=== PATIENT | male | born 1950 | race Caucasian/White ===

== ENCOUNTER → 2023-06-10 15:10 | Outpatient (CLI) | payer OTHER, MEDICAID, SELFPAY ==
--- NOTE | 2023-06-10 15:13 | DI.MRI.S_ITS ---
PROCEDURE: MR CERVICAL SPINE WO CON INDICATIONS: Right greater than left axial neck pain TECHNIQUE: Noncontrast sagittal T1 spin echo and T2 fast spin echo, sagittal STIR, foraminal oblique sagittal T2 fast spin echo, and axial gradient echo or T2 fast spin echo through the cervical spine. COMPARISON: None. FINDINGS: Image quality: Excellent. Alignment and Curvature: There is normal bony alignment. Bone Marrow: Marrow demonstrates normal overall signal. Spinal Cord: Visualized spinal cord has normal size and signal. No cerebellar tonsillar herniation. Paraspinous Soft Tissues: No paravertebral masses. Prevertebral soft tissues are normal in thickness. C2-C3: No significant disc bulge. The foramina and central canal are patent. C3-C4: Diffuse disc bulge, facet hypertrophy, and uncovertebral hypertrophy cause moderate bilateral foraminal stenosis. The central canal is patent. C4-C5: Diffuse disc bulge, facet hypertrophy, and uncovertebral hypertrophy cause severe right and moderate left foraminal stenosis. Mild central canal stenosis. C5-C6: Diffuse disc bulge with a small central protrusion, facet hypertrophy, and uncovertebral hypertrophy cause severe right and moderate left foraminal stenosis. The central canal is patent. C6-C7: Diffuse disc bulge, facet hypertrophy, and uncovertebral hypertrophy cause moderate right and severe left foraminal stenosis. C7-T1: Diffuse disc bulge with no significant foraminal or central canal stenosis. IMPRESSION: 1. Multilevel cervical spondylosis from C3-4 through C6-7 causing foraminal stenosis as detailed above primarily from uncovertebral hypertrophy. 2. Mild central canal stenosis at C4-5, otherwise no significant central canal stenosis. Dictated by: Nabil López M.D. on 06/11/2023 at 12:08 Approved by: Nabil López M.D. on 06/11/2023 at 12:24
== END ==
PROVIDERS: PCP Family Medicine; Referring Provider Physical Medicine & Rehabilitation; Visit Provider Physical Medicine & Rehabilitation
DX: M47.812 Spondylosis without myelopathy or radiculopathy, cervical region (principal); M48.02 Spinal stenosis, cervical region
CPT/HCPCS: 72141

== ENCOUNTER 2023-07-27 09:19 | Outpatient (CLI) | payer OTHER, MEDICAID, SELFPAY ==
[2023-07-27] VITALS (10 sets, daily range): BP systolic 145–172; BP diastolic 65–90; PULSE 65–79; RESP 14–21; TEMP 37; O2SAT 32–100
--- NOTE | 2023-07-27 09:45 | DI.RAD.S_ITS ---
PROCEDURE: PAIN C/T FACET INJ/BLK 1ST L INDICATIONS: SPINAL STENOSIS COMPARISON: [facility], MR, MR CERVICAL SPINE WO CON, 06/10/2023, 15:21. FINDINGS: Fluoroscopic spot filming was performed to verify placement of spinal needles on the right at the C5, C6, and C7 levels, as labeled on the films. Appropriate location of the needle tips was confirmed by injection of iodinated contrast. IMPRESSION: Intraprocedural examination demonstrating appropriate positions of the needles. Dictated by: Jose D Desir M.D. on 07/27/2023 at 13:49 Approved by: Jose D Desir M.D. on 07/27/2023 at 13:50
[2023-07-27] MEDS: MIDAZOLAM 2 MG/2 ML VIAL IV ×2 (10:17→10:22)
[2023-07-27] MEDS: BUPIVACAINE 0.5% (PF) 10 ML VIAL 2 ML INJ (10:23)
[2023-07-27] MEDS: iopamidoL 15 ML VIAL 3 ML INJ (10:24)
--- NOTE | 2023-07-27 10:33 | P.PCN_ITS ---
Date/Time/Diagnoses Date of procedure: 07/27/23 Time of procedure: 10:34 Pre-procedure diagnosis: 1. FACET ARTHROPATHY 2. AXIAL NECK PAIN Post-procedure diagnosis: same Procedure Notes Procedure: 1. FLUOROSCOPICALLY GUIDED, CONTRAST-CONTROLLED RIGHT C5, C6, C7 MBB. Indications: Benny is referred by Dr. Alba for treatment of Axial Neck Pain Physician: Ken Woody Total Fluoroscopy time (seconds): 13 Total sedation minutes: 16 Complications: none Procedure in detail & Post-procedure care: DESCRIPTION OF PROCEDURE Fluoroscopically guided, contrast-controlled right C5, C6, C7 Diagnostic Medial Branch Blocks. Following review of allergy and review of potential side effects and complications, including, but not necessarily limited to, infection, allergic reaction, local tissue breakdown, stroke, temporary or permanent nerve injury and paralysis, the patient indicated that the patient understood and agreed to proceed. An informed consent document was signed by the patient, witnessed by a nurse, and placed in the patient's chart. Additionally, other treatment options including medications, modalities, and physical therapy were reviewed with the patient. After review of previous anaesthesic history and IV conscious sedation the patient was deemed safe to proceed with today?s procedure with IV conscious sedation as ASA class II designation. Safety time-out was performed to confirm patient ID, procedure to be performed and site of procedure. IV sedation was accomplished with a combination of 4mg of Versed was administered by the RN after DO order, titrated to patient comfort during the course of the procedure while the patient remained responsive to all verbal commands Time-out was taken to identify the correct patient, procedure and side prior to starting the procedure. Lying in the prone position, the patient was prepped and draped in the usual sterile fashion using Chlorhexaidine scrub and a fenestrated drape. The level was determined under fluoroscopy. The skin was anesthetized via a 25-gauge 1.5-inch needle with 1% lidocaine solution into the corresponding right C5, C6, C7 lateral pillars. At this point, a 22-gauge short bevel spinal needle was atraumatically introduced and advanced under fluoroscopic guidance to the anatomical pillars. Following negative aspiration, injections of approximately 0.1cc of Isovue 200 confirmed placement without vascular uptake. At this point, a total of 1cc of 0.5% was injected without complication into each of the corresponding medial branch anatomical location. The patient tolerated the procedure well without signs or symptoms of complications prior to transfer to the recovery area continued monitoring without incident. The patient was then transferred to the recovery area where they were observed for an appropriate period of time after the injection. The patient reported a VAS score of 7 prior to the procedure and a post- procedure VAS of 1. POST OP INSTRUCTIONS They were provided a Pain Log to continue to record their response to the target-specific procedure prior to their follow-up visit with their referring physician. Additionally, specific post-injection care instructions and a contact number to our office were provided if concerns arise regarding possible complications associated with the procedure are suspected.
--- NOTE | 2023-07-27 11:24 | PC.NURSE ---
NO RIDE Patient had cervical procedure today by Dr. Woody. Patient stated that [facility] was to pick him up at 1100 for ride home upon admission. Procedure was preformed with sedation. Upon discharge [facility] called by this RN to confirm ride was en route. [facility] reported that patient was not on their list for rides today. Patient then reported that he had not confirmed with [facility] and that he chose to drive himself to his appointment today for the procedure. Patient stated to this RN that he was aware that he needed a ride to and from the procedure today and that he lost my phone so I couldn't call [facility]. Patient stated that he thought he would just sit in the hospital until I was released. aware.
== END 2023-07-27 11:30 | disposition home or self-care (01) ==
LOC: RAD 09:20
PROVIDERS: PCP Family Medicine; Referring Provider Physical Medicine & Rehabilitation; Visit Provider Physical Medicine & Rehabilitation
DX: M47.812 Spondylosis without myelopathy or radiculopathy, cervical region (principal)
CPT/HCPCS: 64490; 64491; 99152; J2250

== ENCOUNTER 2024-01-06 09:12 | Outpatient (CLI) | payer MEDICARE, MEDICAID, SELFPAY ==
[2024-01-06] VITALS (9 sets, daily range): BP systolic 137–177; BP diastolic 62–83; PULSE 65–74; RESP 11–20; TEMP 36.3; O2SAT 96–100
--- NOTE | 2024-01-06 12:30 | DI.RAD.S_ITS ---
PROCEDURE: PAIN C/T FACET INJ/BLK 1ST L INDICATIONS: Right C4-C5 and C6 medial branch block LA. COMPARISON: [facility], , PAIN C/T FACET INJ/BLK 1ST L, 07/27/2023, 11:20. FINDINGS: Fluoroscopic spot filming was performed to verify placement of spinal needles at the right C4-5 and C5-6 level(s), as labeled on the films. Appropriate location(s) of the needle tip(s) was confirmed by injection of iodinated contrast. IMPRESSION: Fluoroscopic guidance utilized for a medial branch block of the cervical spine. Dictated by: Victor Manuel Mendez M.D. on 01/06/2024 at 15:20 Approved by: Victor Manuel Mendez M.D. on 01/06/2024 at 15:21
[2024-01-06] MEDS: MIDAZOLAM 2 MG/2 ML VIAL IV ×2 (12:36→12:42)
[2024-01-06] MEDS: iopamidoL 15 ML VIAL 3 ML INJ (12:39)
[2024-01-06] MEDS: LIDOCAINE 2% INJ SDV 5ML 1 ML INJ (12:39)
--- NOTE | 2024-01-06 12:59 | P.PCN_ITS ---
Date/Time/Diagnoses Date of procedure: 01/06/24 Time of procedure: 13:00 Pre-procedure diagnosis: 1. FACET ARTHROPATHY 2. AXIAL NECK PAIN Post-procedure diagnosis: same Procedure Notes Procedure: 1. FLUOROSCOPICALLY GUIDED, CONTRAST-CONTROLLED RIGHT C4, C5, C6 MBB - SA Indications: Benny is referred by Dr. Alba for treatment of Axial Neck Pain Physician: Ken Woody Total Fluoroscopy time (seconds): 14 Total sedation minutes: 15 Complications: none Procedure in detail & Post-procedure care: DESCRIPTION OF PROCEDURE Fluoroscopically guided, contrast-controlled right C4, C5, C6 Diagnostic Medial Branch Blocks SA. Following review of allergy and review of potential side effects and complications, including, but not necessarily limited to, infection, allergic reaction, local tissue breakdown, stroke, temporary or permanent nerve injury and paralysis, the patient indicated that the patient understood and agreed to proceed. An informed consent document was signed by the patient, witnessed by a nurse, and placed in the patient's chart. Additionally, other treatment options including medications, modalities, and physical therapy were reviewed with the patient. After review of previous anaesthesic history and IV conscious sedation the patient was deemed safe to proceed with today?s procedure with IV conscious sedation as ASA class II designation. Safety time-out was performed to confirm patient ID, procedure to be performed and site of procedure. IV sedation was accomplished with a combination of 4mg of Versed was administered by the RN after DO order, titrated to patient comfort during the course of the procedure while the patient remained responsive to all verbal commands Time-out was taken to identify the correct patient, procedure and side prior to starting the procedure. Lying in the prone position, the patient was prepped and draped in the usual sterile fashion using Chlorhexaidine scrub and a fenestrated drape. The level was determined under fluoroscopy. The skin was anesthetized via a 25-gauge 1.5-inch needle with 1% lidocaine solution into the corresponding right C4, C5, C6 lateral pillars. At this point, a 22-gauge short bevel spinal needle was atraumatically introduced and advanced under fluoroscopic guidance to the anatomical pillars. Following negative aspiration, injections of approximately 0.1cc of Isovue 200 confirmed placement without vascular uptake. At this point, a total of 1cc of 2% Lidocaine solution was injected without complication into each of the corresponding medial branch anatomical location. The patient tolerated the procedure well without signs or symptoms of complications prior to transfer to the recovery area continued monitoring without incident. The patient was then transferred to the recovery area where they were observed for an appropriate period of time after the injection. The patient reported a VAS score of 7 prior to the procedure and a post- procedure VAS of 1. POST OP INSTRUCTIONS They were provided a Pain Log to continue to record their response to the target-specific procedure prior to their follow-up visit with their referring physician. Additionally, specific post-injection care instructions and a contact number to our office were provided if concerns arise regarding possible complications associated with the procedure are suspected.
== END 2024-01-06 13:15 | disposition home or self-care (01) ==
PROVIDERS: PCP Family Medicine; Referring Provider Physical Medicine & Rehabilitation; Visit Provider Physical Medicine & Rehabilitation
DX: M47.812 Spondylosis without myelopathy or radiculopathy, cervical region (principal)
CPT/HCPCS: 64490; 64491; 99152; J2250

== ENCOUNTER → 2024-02-17 09:04 | Outpatient (CLI) | payer MEDICARE, MEDICAID, SELFPAY ==
[2024-02-17] VITALS (8 sets, daily range): BP systolic 123–165; BP diastolic 56–83; PULSE 66–77; RESP 11–17; TEMP 36.4; O2SAT 96–100
--- NOTE | 2024-02-17 09:45 | DI.RAD.S_ITS ---
PROCEDURE: PAIN C/T INTERLAMINAR INJECT INDICATIONS: C6/7 TL MONIK COMPARISON: MR, MR CERVICAL SPINE WO CON, 06/10/2023, 15:21. FINDINGS: Fluoroscopic spot filming was performed to verify placement of spinal needles at the C6-C7 level(s), as labeled on the films. Appropriate location(s) of the needle tip(s) was confirmed by injection of iodinated contrast. IMPRESSION: Fluoroscopy for pain management. Dictated by: Kassidy Pineda M.D. on 02/17/2024 at 13:39 Approved by: Kassidy Pineda M.D. on 02/17/2024 at 13:40
[2024-02-17] MEDS: MIDAZOLAM 2 MG/2 ML VIAL IV (10:16)
--- NOTE | 2024-02-17 10:18 | PC.NURSE ---
Patient appears to be in a LBBB. Patient states that is normal for him. Dr. Woody notified.
[2024-02-17] MEDS: fentaNYL 100 MCG/2 ML INJ 25 MCG IV (10:20)
[2024-02-17] MEDS: iopamidoL 15 ML VIAL 3 ML INJ (10:26)
[2024-02-17] MEDS: DEXAMETHASONE 10 MG/ML VIAL 20 MG INJ (10:27)
[2024-02-17] MEDS: BUPIVACAINE 0.25% (PF) VIAL 2 ML INJ (10:28)
--- NOTE | 2024-02-17 10:45 | P.PCN_ITS ---
Date/Time/Diagnoses Date of procedure: 02/17/24 Time of procedure: 10:45 Pre-procedure diagnosis: 1. CERVICAL STENOSIS, 2. CERVICAL HNP WITH UPPER EXTREMITY RADICULAR FEATURES Post-procedure diagnosis: same Procedure Notes Procedure: 1. FLUORSCOPICALLY GUIDED CONTRAST CONTROLLED INTERLAMINAR EPIDURAL STEROID INJECTION - C6/7 TL MONIK Indications: Benny is referred by Dr. Olguin for treatment of Cervical HNP with Upper Extremity Paresthesias. Physician: Ken Woody Total Fluoroscopy time (seconds): 38 Total sedation minutes: 16 Complications: none Procedure in detail & Post-procedure care: FINDINGS Cervical Stenosis due to disc deterioration and nerve root irritation and nerve root irritation DESCRIPTION OF PROCEDURE Fluoroscopically guided, contrast-controlled C6/7 translaminar epidural steroid injection with conscious sedation. Following review of allergy and review of potential side effects and complications, including, but not necessarily limited to, infection, allergic reaction, local tissue breakdown, temporary as well as permanent nerve injury, stroke, paralysis, and possible , the patient indicated that patient understood and agreed to proceed. An informed consent document was signed by the patient, witnessed by a nurse, and placed in the patient's chart. Additionally, other treatment options including modalities, medications, and physical therapy were reviewed with the patient. After review of previous anaesthesic history and IV conscious sedation the patient was deemed safe to proceed with today?s procedure with IV conscious sedation as ASA class II designation. Safety time-out was performed to confirm patient ID, procedure to be performed and site of procedure. IV sedation was accomplished with a combination of 2mg of Versed and 25mcg of Fentanyl administered by the RN after DO order, titrated to patient comfort during the course of the procedure while the patient remained responsive to all verbal commands. In the prone position, following sterile prep and drape of the cervical region, the C6/7 translaminar space was identified fluoroscopically. The skin was anesthetized via a 25-gauge 1.5-inch needle with 1% lidocaine solution. At this point, a 25-gauge, 2.5-inch short bevel spinal needle was atraumatically introduced and advanced under fluoroscopic guidance into epidural space at the C6/7 translaminar space. Depth was confirmed on lateral view. Radiological data, including multiple fluoroscopic views of the cervical spine, reveal a spinal needle at the C6/7 translaminar space. Lateral views then show placement of the needle in the epidural space. Subsequent views show contrast material flowing superiorly and inferiorly in the epidural space. DSA fluoroscopy with live contrast injection, once again, confirmed no vascular or intrathecal uptake. At this point, using loss of resistance technique with saline and air, the epidural space was entered. Following negative aspiration, injection of maria del rosario roximately 1.5 cc of Isovue-200 with live fluoroscopy in the AP view confirmed epidural flow in the epidural space without vascular or intrathecal uptake observed. Subsequently, a test dose of 1 cc of 1% lidocaine solution was injected and patient was observed for two minutes without signs or symptoms of complications, including abdominal pain, shortness of breath, bilateral upper or lower extremity weakness, nausea and vomiting, prior to steroid injection. At this point, 2cc or 20mg of dexamethasone was then injected without incident. The patient tolerated the procedure well without signs or symptoms of complications prior to being transferred to the recovery area for further monitoring, The patient was then transferred to the recovery area where they were observed for an appropriate period of time after the injection. The patient reported a VAS score of 6 prior to the procedure and a post-procedure VAS of 0. POST OP INSTRUCTIONS The patient was provided a Pain Log to continue to record their response to the target-specific procedure prior to follow-up visit with the referring provider. Additionally, specific post-injection care instructions and a contact number to our office were provided if concerns arise regarding possible complications associated with the procedure are suspected.
--- NOTE | 2024-02-17 11:05 | PC.NURSE ---
Patient denied having any cardiac signs/symptoms including chest pain, SOB, or shoulder pain while in the procedure room.
== END ==
PROVIDERS: PCP Family Medicine; Referring Provider Physical Medicine & Rehabilitation; Visit Provider Physical Medicine & Rehabilitation
DX: M48.02 Spinal stenosis, cervical region (principal); M50.123 Cervical disc disorder at C6-C7 level with radiculopathy
CPT/HCPCS: 62321; 99152; J1100; J2250; J3010; J3490